=== PATIENT | male | born 1965 | race Caucasian/White ===

== ENCOUNTER 2018-06-18 07:45 | Day surgery (SDC) | payer MEDICAID ==
[~2018-06-18] VITALS: Ht 182.9 cm; Wt 111.1 kg
--- NOTE | ~2018-06-18 | OP ---
PATIENT NAME: CATRINA CEDENO JR MEDICAL RECORD: [id number] :67 LOCATION:D.OPS ADMISSION DATE: SURGEON: CATRINA MORIN MD DATE OF OPERATION: 06/18/2018 PREOPERATIVE DIAGNOSES: Lumbar spinal stenosis and foraminal stenosis, L4-L5, left. POSTOPERATIVE DIAGNOSES: Lumbar spinal stenosis and foraminal stenosis, L4-L5, left. PROCEDURES: Lumbar laminotomy, medial facetectomy and foraminotomy at L4-L5 on the left with METRx retractor and microscope. DESCRIPTION AND TECHNIQUE: After induction of general endotracheal anesthesia, the patient was rolled prone on the Rohan frame. Lumbar spine was prepped and draped in usual sterile fashion. Fluoroscopic x-ray and spinal needle localized at the L4-L5 interspace on the left side. A stab incision was created with #11 blade. A series of dilators were used to advance a METRx retractor to the L4-L5 interspace on the left side. Level was confirmed with fluoroscopic x-ray. A microscope and Midas Partha drill were used to perform laminotomy, medial facetectomy, and foraminotomy at L4-L5 on the left. Hypertrophied ligamentum flavum was removed with Cloward rongeurs. Following this, a left L4 and L5 nerve roots were decompressed well. Meticulous hemostasis was maintained throughout the wound. The wounds were irrigated with copious amounts of Ancef irrigant solution. The fascia was closed with 2-0 Vicryl suture, the subdermal layer was closed with 3-0 Vicryl suture. The skin was closed with carlos. A sterile dressing was applied to the wound. The patient was awakened in good condition and taken to recovery. All counts were reported as correct. ESTIMATED BLOOD LOSS: Minimal. 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
[~2018-06-18 07:45] MED LIST: CYCLOBENZAPRINE10 MG PO; HYDROCODON-ACE1 EA10 PO; SEROQUEL200 MG PO
[2018-06-18] MEDS ORDERED: ULTRAM50 MG PO (08:10)
[2018-06-18] MEDS ORDERED: OMEPRAZOLE DR 20 MG PT (08:11)
[2018-06-18 08:14] VITALS: BP 148/79; Ht 182.9 cm; Wt 111.1 kg
--- NOTE | 2018-06-18 14:55 | NUR ---
PATIENT AMBULATES TO BATHROOM AND VOIDS AND HAS BOWEL MOVEMENT IN TOILET. AMBULATES WITHOUT UNSTEADINESS OR DIZZINESS. PIV DC'D WITH TIP INTACT. 1515 DISCHARGE INSTRUCTIONS REVIEWED WITH PATIENT AND SPOUSE. DISCHARGED HOME VIA WHEELCHAIR TO PRIVATE VEHICLE WITH SPOUSE
[2018-06-18] MEDS ORDERED: HYDROCODON-ACE1 EA10 PO (15:09)
== END 2018-06-18 15:15 | disposition home or self-care (01) ==
LOC: D.OPS 07:45 → D.PAN 10:00 → D.OPS 10:00 → D.PAN 11:30 → D.OPS 15:15
PROVIDERS: ATTEND Neurological Surgery
DX: M48.061 Spinal stenosis, lumbar region without neurogenic claudication (principal)